=== PATIENT | female | born 1995 | race Caucasian/White ===

== ENCOUNTER → 2017-05-15 | Outpatient (CLI) | payer SELFPAY ==
[~2017-05-15] MED LIST: ALBU90OI INH; Amoxicillin875 MG PO; Bactrim Ds Tab1 EACH PO; CEPH500 PO; CHOL10002 PO; Cheratussin AC118 ML PO; Citrate Of Mag300 ML PO; DOXE10; HYDPAM25 PO; HYOS.125 SL; MEDR10 PO; MULVITMINE PO; Mobic7.5 MG PO; NORT25 PO; Norco 5-325 Ta1 EACH PO; ONDA4ODT MM; PARO20 PO; PRAZ2 PO; PROM25; PROM25 PO; RXONDA4ODT MM; SERT50 PO
== END ==
LOC: LAB SRC 11:55
DX: R31.9 Hematuria, unspecified (principal)
CPT/HCPCS: 87086

== ENCOUNTER 2017-06-15 12:38 | Emergency (ER) | payer OTHER ==
[~2017-06-15] VITALS: Ht 157.5 cm; Wt 52.2 kg
[~2017-06-15 12:38] MED LIST changes: -Bactrim Ds Tab1 EACH PO; -MEDR10 PO
[2017-06-15 13:12] LABS: BASOPHILS ABSOLUTE AUTO 0.05 K/mm3 (0.00-0.23); BASOPHILS PERCENT AUTO 1 % (0-2); EOSINOPHILS PERCENT AUTO 5 % (0-6); Hemoglobin 12.8 g/dL (11.5-16.0); IMMATURE GRAN ABSOLUTE AUTO 0.02 K/mm3 (0.00-0.10); IMMATURE GRAN PERCENT AUTO 0 % (0-1); LYMPHOCYTES ABSOLUTE AUTO 2.47 K/mm3 (0.84-5.20); LYMPHOCYTES PERCENT AUTO 31 % (21-46); MONOCYTES ABSOLUTE AUTO 0.48 K/mm3 (0.16-1.47); MONOCYTES PERCENT AUTO 6 % (4-13); Mean Corpuscular HGB 31.1 pg (26.0-34.0); Mean Corpuscular HGB Conc 32.8 g/dL (31.5-36.5); Mean Corpuscular Volume 95 fL (80-100); Mean Platelet Volume 8.9 fL (9.1-12.4); NEUTROPHILS ABSOLUTE AUTO 4.69 K/mm3 (1.96-9.15); NEUTROPHILS PERCENT AUTO 58 % (41-73); Platelet Count 433 K/mm3 (150-400); RDW Coefficient Variation 12.9 % (11.7-14.2); RDW Standard Deviation 44.4 fL (35.1-46.3); Red Blood Cell Count 4.12 M/mm3 (3.80-5.20); White Blood Cell Count 8.11 K/mm3 (4.00-11.30)
[2017-06-15 13:25] LABS: Alanine Aminotransfer (ALT/SGP 18 U/L (12-78); Albumin, Blood 4.3 g/dL (3.4-5.0); Alk Phos 69 U/L (50-136); Anion Gap 7 mmol/L (6-16); Aspartate Aminotrans (AST/SGOT 15 U/L (12-37); Bilirubin, Total 0.4 mg/dL (0.1-1.0); Blood Urea Nitrogen 15 mg/dL (8-24); Bun/Creatinine Ratio 21.4 (12.0-20.0); CO2, Blood 26 mmol/L (21-32); Calcium, Blood 9.2 mg/dL (8.5-10.1); Chloride, Blood 105 mmol/L (98-108); Globulin, Blood 4.3 g/dL (2.2-4.0); Glomerular Filtration Rate >60 (60-); Glucose, Blood 97 mg/dL (70-99); Potassium, Blood 3.7 mmol/L (3.5-5.5); Sodium, Blood 138 mmol/L (136-145); Total Protein, Blood 8.6 g/dL (6.4-8.2)
[2017-06-15] MEDS ORDERED: MEDR10 PO (14:52)
== END 2017-06-15 15:04 | disposition home or self-care (01) ==
LOC: ER 12:38
PROVIDERS: Emergency Medicine
DX: N93.9 Abnormal uterine and vaginal bleeding, unspecified (principal); F17.200 Nicotine dependence, unspecified, uncomplicated; Z88.8 Allergy status to other drugs, medicaments and biological substances; Z79.899 Other long term (current) drug therapy
CPT/HCPCS: 36415; 76856; 80053; 85025; 99284

== ENCOUNTER 2018-03-05 07:59 | Inpatient (IN) | payer OTHER ==
[~2018-03-05] VITALS: Ht 157.5 cm; Wt 50.0 kg
[~2018-03-05 07:59] MED LIST changes: +Bactrim Ds Tab1 EACH PO; +MEDR10 PO
[2018-03-05 08:54] LABS: BASOPHILS PERCENT AUTO 0 % (0-2); EOSINOPHILS PERCENT AUTO 0 % (0-6); Hematocrit 38.4 % (33.0-51.0); Hemoglobin 12.9 g/dL (11.5-16.0); Mean Corpuscular HGB 30.1 pg (26.0-34.0); Mean Corpuscular HGB Conc 33.6 g/dL (31.5-36.5); Mean Corpuscular Volume 90 fL (80-100); Mean Platelet Volume 8.8 fL (9.1-12.4); Platelet Count 204 K/mm3 (150-400); RDW Coefficient Variation 12.3 % (11.7-14.2); RDW Standard Deviation 40.3 fL (35.1-46.3); Red Blood Cell Count 4.28 M/mm3 (3.80-5.20); White Blood Cell Count 2.58 K/mm3 (4.00-11.30)
[2018-03-05 08:55] LABS: IMMATURE GRAN ABSOLUTE AUTO 0.02 K/mm3 (0.00-0.10); IMMATURE GRAN PERCENT AUTO 1 % (0-1); LYMPHOCYTES ABSOLUTE AUTO 0.25 K/mm3 (0.84-5.20); LYMPHOCYTES PERCENT AUTO 10 % (21-46); MONOCYTES ABSOLUTE AUTO 0.02 K/mm3 (0.16-1.47); MONOCYTES PERCENT AUTO 1 % (4-13); NEUTROPHILS ABSOLUTE AUTO 2.29 K/mm3 (1.96-9.15); NEUTROPHILS PERCENT AUTO 89 % (41-73)
[2018-03-05 09:19] LABS: International Normalized Ratio 1.28
[2018-03-05 09:26] LABS: Albumin, Blood 3.3 g/dL (3.4-5.0); Bilirubin, Total 1.6 mg/dL (0.1-1.0); Bun/Creatinine Ratio 17.4 (12.0-20.0); Calcium, Blood 8.2 mg/dL (8.5-10.1); Creatinine, Blood 1.21 mg/dL (0.40-1.00); Globulin, Blood 3.2 g/dL (2.2-4.0); Potassium, Blood 3.1 mmol/L (3.5-5.5); Total Protein, Blood 6.5 g/dL (6.4-8.2)
[2018-03-05 10:53] LABS: Source, Urine Clean Catch
[2018-03-05 10:56] LABS: Appearance, Urine Clear (Clear); Bilirubin, Urine Neg (Neg); Blood, Urine 1+ (Neg); Color, Urine Yellow (P-Yellow); Glucose Qualitative, Urine Neg (Neg); Ketones, Urine Neg (Neg); Leukocyte Esterase, Urine 1+ (Neg); Nitrite, Urine Neg (Neg); Protein, Urine 1+ (Neg); Urobilinogen, Urine NORM (Normal)
--- NOTE | 2018-03-05 11:17 | NUR ---
REPORT TAKEN FROM RISK COMPLIANCE ANALYST
[2018-03-05 11:18] LABS: White Blood Cells, Urine 0-2 /hpf (0-5)
[2018-03-05 11:19] LABS: Bacteria Many /hpf; Red Blood Cells, Urine Not Seen /hpf (0-2); Squamous Epithelial Cells Mod /hpf (Few)
--- NOTE | 2018-03-05 11:31 | NUR ---
PT ADMITTED TO ICU FROM ER FOR SEVERE SEPSIS. PT AWAKE, ORIENTED, DROWSY. SKIN PALE TO DUSKY AND CLAMMY. POOR PERIPHERAL PERFUSION TO 4 EXT. BT'S HYPOACTIVE. C/O PAIN 10/10 EVERYWHERE, ESPECIALLY TO CHEST AREA/DIFFUSE. DISCRIBES PAIN ACHY AND SHARP. PT HYPOTENSIVE AT 87/55 W MAP 63. HEART RATE SINUS TACH AT 126. PT DOES NOT HAVE LEMA CATH, URINATED 700CC IN ER. PT HAS LR RUNNING AT 150CC/HR. PT MAY REQUIRE ADDITIONAL FLUIDS AND/OR PRESSORS. MAY NEED PICC LINE. TEMP 98.7.
[2018-03-05 11:35] LABS: U Amphetamine Screen DETECTED; U Methamphetamine Screen DETECTED; U Opiates Screen DETECTED; U Oxycodone Screen DETECTED
[2018-03-05 11:36] LABS: U Barbituate Screen Not Detected; U Benzodiazapine Screen Not Detected; U Buprenorphine Screen Not Detected; U Cannabinoids Screen Not Detected; U Cocaine Screen Not Detected; U Methadone Screen Not Detected; U Phencyclidine Screen Not Detected; U Propoxyphene Screen Not Detected
--- NOTE | 2018-03-05 12:01 | NUR ---
DR MATT CALLED REGARDING PT'S HYPOTENSION, HEART RATE 126, 02 NEEDS; PLACED ON 2L VIA N/C FOR SATS 88% ON RA, POOR PERFUSION. DR SOLIS CONSULTED/IN UNIT. DR SOLIS GIVEN QUICK UPDATE. PICC LINE TO BE PLACED
--- NOTE | 2018-03-05 12:08 | NUR ---
DR SOLIS AT BEDSIDE. PICC LINE TO BE PLACED.
--- NOTE | 2018-03-05 13:23 | NUR ---
Late note: Spoke with pt's boyfriend's mother in the hallway. She was provided space to reflect on the pt - her thoughts and feelings for her and her hope of changing her life choices. She verbalizes the potential of the boyfriend visiting later in the day. Pastoral presence and empathic listening extended to the pt's mother in law.
--- NOTE | 2018-03-05 15:12 | NUR ---
PICC LINE PLACED W/O DIFFICULTY. 1 LITER NS BOLUS AT 1230. BP CONT TO FALL AFTER BOLUS. LEVOPHED GTT STARTED AT 4MCG FOR MAP < 60. 14F TEMP LEMA PROB PLACED W/O DIFFICULTY. TEMP 100.9, TYLENOL GIVEN W SMALL SIP OF WATER. FENT IV GIVEN FOR PAIN "EVERYWHERE" 11/17, WITH GOOD EFFECT. PT REMAINS TACHY. SATS 100% ON 2L VIA N/C. PT'S FATHER CALLED AND GIVEN UPDATE THAT SHE IS IN HOSP W INFECTION PER PT'S REQUEST. SHE DOES NOT WANT FATHER OR OTHERS TO KNOW THAT IT WAS FROM IV DRUG USE. I EXPLAINED TO PT IF SHE GETS WORSE AND IS UNABLE TO SPEAK FOR HERSELF, THAT INFORMATION MAY NEED TO BE SHARED WITH NEXT OF KIN. PT AGREED THAT WOULD BE ACCEPTABLE.
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
--- NOTE | 2018-03-05 20:53 | NUR ---
CARE ASSUMED REPORT RECEIVED, CARE ASSUMED. PT DROWSY, BUT ORIENTED AND COOPERATED. MEDICATED FOR PAIN, SEE EMAR. VITALS STABLE WITH LEVOPHED. SEE FLOWSHEET. SEE SHIFT ASSESSMENT. PT REPEATEDLY REQUESTING FOOD, RECEPTIVE TO EDUCATION. PROVIDED WITH ICE CHIPS.
--- NOTE | 2018-03-06 02:27 | NUR ---
PAIN BILATERAL HANDS PT REPORTS 10/10 PAIN IN BILATERAL FINGERTIPS STATING SHE CANT FEEL THEM. CAP REFILL CONTINUES TO BE DELAYED. 02 PROB READING SATURATION ON BILATERAL HANDS. TITRATING LEVOPHED INDICATED. PT EDUCATED AND AGREEABLE. SEE FLOWSHEET.
[2018-03-06 03:46] LABS: Hematocrit 33.1 % (33.0-51.0); Hemoglobin 11.1 g/dL (11.5-16.0); Mean Corpuscular HGB 30.5 pg (26.0-34.0); Mean Corpuscular HGB Conc 33.5 g/dL (31.5-36.5); Mean Corpuscular Volume 91 fL (80-100); Platelet Count 138 K/mm3 (150-400); RDW Standard Deviation 43.4 fL (35.1-46.3); Red Blood Cell Count 3.64 M/mm3 (3.80-5.20); White Blood Cell Count 16.98 K/mm3 (4.00-11.30)
[2018-03-06 04:00] LABS: Anion Gap 9 mmol/L (6-16); Blood Urea Nitrogen 24 mg/dL (8-24); Bun/Creatinine Ratio 23.3 (12.0-20.0); CO2, Blood 24 mmol/L (21-32); Calcium, Blood 6.8 mg/dL (8.5-10.1); Chloride, Blood 111 mmol/L (98-108); Creatinine, Blood 1.03 mg/dL (0.40-1.00); Glomerular Filtration Rate >60 (60-); Glucose, Blood 81 mg/dL (70-99); Magnesium, Blood 1.5 mg/dL (1.6-2.4); Phosphorus, Blood 5.1 mg/dL (2.5-4.9); Potassium, Blood 3.8 mmol/L (3.5-5.5); Sodium, Blood 144 mmol/L (136-145)
[2018-03-06 04:05] LABS: BAND PERCENT MAN 21 % (0-8); BASOPHILS PERCENT MAN 0 % (0-2); EOSINOPHILS PERCENT MAN 0 % (0-6); LYMPHOCYTES ABSOLUTE MAN 0.33 K/mm3 (0.84-5.20); LYMPHOCYTES PERCENT MAN 2 % (21-46); METAMYELOCYTE PERCENT MAN 3 % (0-0); MONOCYTES ABSOLUTE MAN 0.33 K/mm3 (0.16-1.47); MONOCYTES PERCENT MAN 2 % (4-13); MYELOCYTE PERCENT MAN 3 % (0-0); NEUTROPHILS ABSOLUTE MAN 15.28 K/mm3 (1.96-9.15); SEG NEUTROPHILS PERCENT MAN 69 % (41-73); TOTAL CELLS COUNTED 100
--- NOTE | 2018-03-06 05:35 | NUR ---
DR. SOLIS COMMUNICATION PT CONTINUES TO HAVE PAIN IN FINGERS. LEVOPHED OFF. DR. SOLIS MADE AWARE.
--- NOTE | 2018-03-06 06:34 | NUR ---
SUMMARY THROUGHOUT NIGHT AND MORNING PT HAS BEEN TITRATED OFF OF LEVOPHED, SEE FLOWSHEET. GOOD URINE OUTPUT NOTED THROUGHOUT NIGHT. PT REPORTS FEELING PAINFUL ALL OVER, AND "DOPE SICK" THIS MORNING. PROVIDED WITH MEDICATIONS PER EMAR. PT HAS RESTED ON AND OFF, THOUGH IS ANXIOUS AND PAINFUL. HR REMAINS TACHYCARDIC IN 100'S-110'S. TEMP CONSISTENTLY 99'S. RR 12-2O THROUGHOUT NIGHT. PT DOES REPORT PAIN IN HANDS IS IMPROVING SINCE LEVOPHED HAS BEEN TURNED OFF. OTHERWISE, NO CHANGES.
--- NOTE | 2018-03-06 07:35 | NUR ---
ASSUMED CARE OF PT THIS AM. PT REQUESTING ASSISTANCE WITH REPOSITIONING, STATES "I HURT EVERYWHERE I CANT MOVE". PT. ASSISTED TO REPOSITION. PT. SHOWS WHERE SHE INJECTED, PUNCTURE SITES PRESENT, NO REDNESS OR SWELLING. LEVOPHED CURRENTLY OFF AT THIS TIME. PT. REQUESTING MEDICATION TO SLEEP. PROVIDER NOTIFIED, MELATONIN TO BE ORDERED THIS EVENING. PT. ANXIOUS IN ROOM, CONTINUES TO STATES "I HURT AND I NEED TO SLEEP", ATIVAN ORDER OBTAINED FROM PROVIDER PRN. CALL LIGHT IN REACH. WATER AT BEDSIDE.
--- NOTE | 2018-03-06 12:04 | NUR ---
UPDATE PT SLEEPING AT THIS TIME. APPEARS TO BE RESTING MORE COMFORTABLY POST ATIVAN ADMIN. VSS AT THIS TIME.
--- NOTE | 2018-03-06 14:24 | NUR ---
DIARRHEA PT HAVING FREQUENT LIQUID STOOL, INCONTINENT IN BED. UNABLE TO OBTAIN SAMPLE AT THIS TIME. NOTIFIED. PT WEAK AND PAINFUL WHEN GETTING UP TO BEDSIDE COMMODE AND DIZZY UPON STANDING. BED CROOK AND DRY FLOWS USED
--- NOTE | 2018-03-06 14:25 | NUR ---
LEVOPHED PT CONTINUES WITH BP MAP IN THE 50S. LEVOPHED GTT RESTARTED AT 2MCG/KG/MIN
--- NOTE | 2018-03-06 15:29 | NUR ---
RECTAL TUBE PLACED PT. CONTINUED TO AWAKEN AND HAVE SOILED SELF IN BED WITH LIQUID STOOL. PER DR. SOLIS RECTAL TUBE PLACED AT THIS TIME. SPECIMEN COLLECTED AND SENT TO LAB. PT LEVOPHED GTT TITRATED UP TO 4MCG/KG/MIN.
--- NOTE | 2018-03-06 17:18 | NUR ---
SHIFT SUMMARY PT. REMAINS ALERT AND ORIENTED T/O SHIFT. WEAK AND PAINFUL WITH MOVEMENT. MEDICATED WITH ATIVAN AND FENTANYL PRN THIS SHIFT FOR ANXIETY AND PAIN MANAGEMENT. PT. STARTED TO HAVE LIQUID STOOL THIS SHIFT, RECTAL TUBE PLACED PER DR. SOLIS AND STOOL SPECIMEN SENT TO LAB. PT. BECAME HYPOTENSIVE AND LEVOPHED WAS RESTARTED AND TITRATED UP TO 6MCG/KG/MIN. PT. REMAINED ON RA T/O SHIFT. PT REQUESTING ASSISTANCE FOR REPOSITIONING FREQUENTLY T/O DAY. TMAX OF 99.7 THIS SHIFT. VSS AT THIS TIME. REPORT TO ONCOMING RN.
--- NOTE | 2018-03-06 22:24 | NUR ---
1899 CARE ASSUMED, PT DROWSY, ROUSES TO VERBAL STIM. BP STABLE, LEVOPHED GTT DECREASED 1MIC/ MIN TO 3 YESENIA/MIN. FINGERS COLD, C/O PAIN ALL OVER , MOSTLY IN BACK, TREATED W/ FENTANYL 50 YESENIA. PT C/O EXCRUCIATING PAIN W/ MOVEMENT BUT QUICKLY RETURNS TO SLEEP. 2039 POSITIVE BLOOD CULT REPORTED TO DR SOLIS, CLINDAMYCIN STARTED. 2144 NEW ONSET FREQ PVC, PRS, VT TO [address] SOLIS, LAB & ELECTROLYTE ODERS STARTED.
--- NOTE | 2018-03-06 22:30 | NUR ---
ASSUMED PT CARE TOOK OVER CARE. PT LYING IN BED ON HER SIDE. DECLINED THE NEED TO BE TURNED. PT NEEDED BLOOD DRAWN AND D/T BP'S BEING TOO UNSTABLE; LAB WAS ASKED TO DRAW INSTEAD OF TAKING BLOOD FROM PT'S PICC LINE. PT IS ALERT AND ORIENTED; ABLE TO MAKE NEEDS KNOWN; VERY DROWSY, BUT EASILY AROUSED. PT HAS LEVOPHED INFUSING AT 4MCG/MIN; LR AT 150MLS/HR; AND NS TKO. PT APPEARS TO BE COMFORTABLE AT THIS TIME.
[2018-03-06 22:49] LABS: Magnesium, Blood 1.8 mg/dL (1.6-2.4); Phosphorus, Blood 3.8 mg/dL (2.5-4.9); Potassium, Blood 3.3 mmol/L (3.5-5.5)
[2018-03-07 06:01] LABS: BASOPHILS ABSOLUTE AUTO 0.09 K/mm3 (0.00-0.23); BASOPHILS PERCENT AUTO 0 % (0-2); Hematocrit 31.6 % (33.0-51.0); Hemoglobin 10.7 g/dL (11.5-16.0); LYMPHOCYTES ABSOLUTE AUTO 1.44 K/mm3 (0.84-5.20); LYMPHOCYTES PERCENT AUTO 5 % (21-46); MONOCYTES ABSOLUTE AUTO 1.24 K/mm3 (0.16-1.47); MONOCYTES PERCENT AUTO 5 % (4-13); Mean Corpuscular HGB 31.1 pg (26.0-34.0); Mean Corpuscular HGB Conc 33.9 g/dL (31.5-36.5); Mean Corpuscular Volume 92 fL (80-100); Mean Platelet Volume 10.2 fL (9.1-12.4); Platelet Count 120 K/mm3 (150-400); RDW Coefficient Variation 13.2 % (11.7-14.2); RDW Standard Deviation 44.6 fL (35.1-46.3); Red Blood Cell Count 3.44 M/mm3 (3.80-5.20); White Blood Cell Count 26.81 K/mm3 (4.00-11.30)
[2018-03-07 06:02] LABS: EOSINOPHILS ABSOLUTE AUTO 0.01 K/mm3 (0.00-0.68); EOSINOPHILS PERCENT AUTO 0 % (0-6); IMMATURE GRAN ABSOLUTE AUTO 2.98 K/mm3 (0.00-0.10); IMMATURE GRAN PERCENT AUTO 11 % (0-1); NEUTROPHILS ABSOLUTE AUTO 21.05 K/mm3 (1.96-9.15); NEUTROPHILS PERCENT AUTO 79 % (41-73)
--- NOTE | 2018-03-07 06:13 | NUR ---
END OF SHIFT SUMMARY PT REMAINS ALERT AND ORIENTED; ABLE TO COMMUNICATE NEEDS. PT HAD AN EPISODE OF NON-SUSTAINED V-TACH AROUND 2129; THEREFORE, DR. SOLIS ORDERED LABS WITH ELECTROLYTE PROTOCOL. PT ENDED UP RECEIVING POTASSIUM CHLORIDE 40MEQ AND MAGNESIUM SULFATE 2G PER THE ELECTROLYTE PROTOCOL. PICC LINE REMAINS PATENT AND INFUSING LR AT 100MLS/HR; NS TKO; AND LEVOPHED AT 3MCG/MIN. PT HAS C/O PAIN DURING REPOSITIONING; MEDICATED WITH PRN FENTANYL X2 T/O SHIFT; EFFECTIVE. RECTAL TUBE BEGAN TO LEAK, BUT WAS STILL INTACT; THEREFORE, DEFLATED BALLOON AND INSERTED FURTHER; REINFLATED WITH 45CC OF WATER. RECTAL TUBE CONTINUED TO LEAK; THEREFORE, INFLATED WITH AN ADDITIONAL 15CC OF WATER. RECTAL TUBE HAS SINCE REMAINED PATENT AND DRAINING TO GRAVITY. PT HAS BEEN EDUCATED TO TRY AND REMAIN ON SIDE IN ORDER TO PREVENT CLAMPING DOWN THE RECTAL TUBE; PT DEMONSTRATED UNDERSTANDING. LEMA CATH IS PATENT AND DRAINING TO GRAVITY; CLEAR, YELLOW URINE; NO SEDIMENT OR HEMATURIA NOTED. LUNG SOUNDS REMAIN CLEAR. CARDIOVASCULAR MAC PT HAS BEEN SINUS TACH 100-110'S WITH THE ONE EPISODE OF NON-SUSTAINED V-TACH; AND OCCASIONAL PVC'S NOTED; NO MURMURS NOTED. PT SKIN REMAINS FLUSHED WITH HER BILATERAL FINGERS PALE/DUSKY AND COLD TO THE TOUCH.
[2018-03-07 06:18] LABS: BAND PERCENT MAN 31 % (0-8); BASOPHILS PERCENT MAN 0 % (0-2); EOSINOPHILS PERCENT MAN 0 % (0-6); LYMPHOCYTES ABSOLUTE MAN 1.34 K/mm3 (0.84-5.20); LYMPHOCYTES PERCENT MAN 5 % (21-46); METAMYELOCYTE ABSOLUTE MAN 0.26 K/mm3 (0.00-0.00); METAMYELOCYTE PERCENT MAN 1 % (0-0); MONOCYTES PERCENT MAN 3 % (4-13); NEUTROPHILS ABSOLUTE MAN 24.39 K/mm3 (1.96-9.15); SEG NEUTROPHILS PERCENT MAN 60 % (41-73); TOTAL CELLS COUNTED 100
[2018-03-07 06:19] LABS: Anion Gap 6 mmol/L (6-16); Blood Urea Nitrogen 20 mg/dL (8-24); Bun/Creatinine Ratio 21.7 (12.0-20.0); CO2, Blood 23 mmol/L (21-32); Calcium, Blood 6.9 mg/dL (8.5-10.1); Chloride, Blood 114 mmol/L (98-108); Creatinine, Blood 0.92 mg/dL (0.40-1.00); Glomerular Filtration Rate >60 (60-); Glucose, Blood 79 mg/dL (70-99); Magnesium, Blood 2.7 mg/dL (1.6-2.4); Potassium, Blood 4.1 mmol/L (3.5-5.5); Sodium, Blood 143 mmol/L (136-145)
--- NOTE | 2018-03-07 08:01 | NUR ---
ASSUMED CARE PT. ALERT AND ORIENTED THIS AM. DROWSY. AWAKENS TO VERBAL STIMULI. PT HR LOW 100S, REMAINS ON LEVOPHED GTT AT 3MCG/KG/MIN. PT CONTINUES TO REPORT PAIN T/O BODY. STATES "MY INSIDES AND MY SHOULDERS AND MY BACK", WILL MED PER ORDER. PT. CONTINUES WITH RECTAL TUBE IN PLACE, DRAINING LIQUID BROWN STOOL. LEMA PATENT AND DRAINING TO GRAVITY. NADN AT THIS TIME.
[2018-03-07 10:02] LABS: Vancomycin, Trough 3.5 ug/mL (5.0-10.0)
--- NOTE | 2018-03-07 12:15 | NUR ---
UPDATE PT REMAINS PAINFUL WITH REPOSITIONING, TOLERATING BETTER THAN YESTERDAY. PT. ABLE SHIFT SELF IN BED WITH MINIMAL ASSISTANCE. RECTAL TUBE REMAINS IN PLACE, DRAINING TO GRAVITY ALONG WITH LEMA. PT. HAS GOOD ORAL INTAKE OF FLUIDS, CURRENTLY ON CLEAR LIQUIDS. LEVOPHED TITRATED DOWN TO 2MCG/KG/MIN AT THIS TIME. PT. SLEEPING ON AND OFF T/O DAY. COOPERATIVE WITH CARE
--- NOTE | 2018-03-07 17:55 | NUR ---
SHIFT SUMMARY PT. ALERT AND ORIENTED T/O SHIFT. PT. ABLE TO REPOSITION HERSELF WITH OUT ASSISTANCE TODAY. PT ALSO REPORTS HER PAIN HAS IMPROVED FROM YESTERDAY. PT. SLEPT MOST OF THE DAY, REPORTING LITTLE DESIRE FOR FOOD, BUT TOLERATING PO LIQUIDS. PT. CONTINUES WITH LIQUID STOOL; FIBER SUPPLEMENT AND PROBIOTICS STARTED THIS SHIFT. PT. ALSO CONTINUES WITH LEMA CATHETER DRAINING TO GRAVITY.PT. LEVOPHED DECREASED TO 2MCG/KG/MIN THIS AFTERNOON. ESPERANZAN. CALL LIGHT IN REACH, REPORT TO ONCOMING RN.
--- NOTE | 2018-03-07 19:15 | NUR ---
ASSUMED PT CARE PT IS CURRENTLY ASLEEP. FAMILY STOPPED BY TO DROP OF A CELL PHONE MEASUREMENT SUPERVISOR FOR PT; STATED THEY COULDN'T STAY BECAUSE THEY WERE SICK, BUT ALSO DIDN'T WANT TO WAKE THE PT. LEVOPHED IS CURRENTLY INFUSING AT 1MCG/MIN VIA PICC LINE TO TERRENCE. NS TKO WITH ZOSYN INFUSING, WELL LR INFUSING AT 100MLS/HR. PT IS IN NSR WITH HR 90'S. LEMA CATH IS PATENT AND DRAINING CLEAR, YELLOW URINE. RECTAL TUBE IS PATENT AND DRAINING TO GRAVITY WELL. PT APPEARS COMFORTABLE WITH NO SIGNS OF ACUTE DISTRESS AT THIS TIME. CALL LIGHT IS WITHIN REACH, WELL BEDSIDE TABLE.
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
[2018-03-08 03:22] LABS: BASOPHILS ABSOLUTE AUTO 0.03 K/mm3 (0.00-0.23); BASOPHILS PERCENT AUTO 0 % (0-2); EOSINOPHILS ABSOLUTE AUTO 0.02 K/mm3 (0.00-0.68); EOSINOPHILS PERCENT AUTO 0 % (0-6); Hematocrit 29.5 % (33.0-51.0); Hemoglobin 9.7 g/dL (11.5-16.0); IMMATURE GRAN ABSOLUTE AUTO 0.05 K/mm3 (0.00-0.10); IMMATURE GRAN PERCENT AUTO 0 % (0-1); LYMPHOCYTES ABSOLUTE AUTO 1.63 K/mm3 (0.84-5.20); LYMPHOCYTES PERCENT AUTO 9 % (21-46); MONOCYTES ABSOLUTE AUTO 0.64 K/mm3 (0.16-1.47); MONOCYTES PERCENT AUTO 4 % (4-13); Mean Corpuscular HGB 30.7 pg (26.0-34.0); Mean Corpuscular HGB Conc 32.9 g/dL (31.5-36.5); Mean Corpuscular Volume 93 fL (80-100); Mean Platelet Volume 10.2 fL (9.1-12.4); NEUTROPHILS ABSOLUTE AUTO 15.39 K/mm3 (1.96-9.15); NEUTROPHILS PERCENT AUTO 87 % (41-73); Platelet Count 107 K/mm3 (150-400); RDW Coefficient Variation 13.1 % (11.7-14.2); Red Blood Cell Count 3.16 M/mm3 (3.80-5.20); White Blood Cell Count 17.76 K/mm3 (4.00-11.30)
[2018-03-08 03:39] LABS: Anion Gap 5 mmol/L (6-16); Blood Urea Nitrogen 11 mg/dL (8-24); Bun/Creatinine Ratio 12.4 (12.0-20.0); CO2, Blood 24 mmol/L (21-32); Calcium, Blood 7.5 mg/dL (8.5-10.1); Chloride, Blood 115 mmol/L (98-108); Creatinine, Blood 0.88 mg/dL (0.40-1.00); Glomerular Filtration Rate >60 (60-); Glucose, Blood 93 mg/dL (70-99); Magnesium, Blood 1.8 mg/dL (1.6-2.4); Phosphorus, Blood 2.1 mg/dL (2.5-4.9); Sodium, Blood 144 mmol/L (136-145)
--- NOTE | 2018-03-08 05:55 | NUR ---
END OF SHIFT SUMMARY PT HAS BEEN PLEASANT AND COOPERATIVE WITH CARE; VERY RESTLESS TONIGHT STATING THAT THE RECTAL TUBE WAS UNCOMFORTABLE; REPOSITIONING OF THE RECTAL TUBE AND PT WERE BOTH UNEFFECTIVE. STOOL IS BECOMING MORE PASTY RATHER THAN LOOSE; THEREFORE, ASKED PT IF SHE JUST WANTED IT REMOVED AND SHE STATED NO. CONTINUED WITH ASSISTANCE IN REPOSITIONING. LEVOPHED TURNED OFF AT MIDNIGHT AND BP'S HAVE MAINTAINED SBP 90'S WITH MAP >60. PT HAS C/O GENERALIZED PAIN, BUT C/O OF CHEST PAIN ONCE; PT STATED IT WAS MORE PAINFUL ON INSPIRATION. LISTENED TO HEART; NO RUBS OR MURMURS NOTED. VSS. LATER IN THE SHIFT WHEN PT REQUESTED PRN ATIVAN PT EXPERIENCED AN EPISODE OF BRADYCARDIA FOR <10 SECONDS DURING ADMINISTRATION WITH MILD CHEST PAIN. ATIVAN WAS ADMINISTERED PER GUIDELINES ACCORDING TO CLINICAL PHARMACOLOGY AT NO MORE THAN 2MG/MIN. BOYFRIEND WAS IN TO SEE PT AT APPROXIMATELY 0200; BROUGHT IN A BAG OF CHARGERS, A SCARF, SOCKS, AND A KEN'S BAR. BOYFRIEND CONTINUED TO HELP "REPOSITION PT" AND REMOVED HER BP CUFF. INFORMED BOTH THE BOYFRIEND AND THE PT THAT THE CUFF NEEDED TO STAY ON AND THAT THEY NEEDED TO CALL FOR ASSISTANCE PRIOR TO REPOSITIONING IN ORDER TO PREVENT ANY LINES FROM DISLODGING. THE BOYFRIEND LEFT AT APPROXIMATELY 0400. PT HAS BEEN RESTING SINCE. JUST REPOSITIONED AGAIN AND MEDICATED WITH PRN ATIVAN PER ORDERS. MAGNESIUM WAS ORDERED PER ELECTROLYTE PROTOCOL AND SPOKE WITH DR. SHEARER REGARDING LOW PHOSPHORUS LEVEL PHARMACY CALLED TO STATE THERE WASN'T ANY SODIUM PHOS AVAILABLE; NEW ORDERS FOR NEUTRA PHOS PO INSTEAD. PT CURRENTLY HAS LR INFUSING AT 100MLS/HR; NS TKO; MAGNESIUM 25MLS/HR. PT APPEARS COMFORTABLE AT THIS TIME. NO SIGNS OF DISTRESS NOTED.
--- NOTE | 2018-03-08 08:00 | NUR ---
PATIENTS RECTAL TUBE JUST DCED AND ALTHEA CARE DONE. PLAN TO REMOVE LEMA CATH TODAY. LUNGS CLEAR T/O. IVPBS INFUSING. MED WITH LOMOTIL BECAUSE OF SEVERE DIARHEA.
--- NOTE | 2018-03-08 09:55 | NUR ---
WANTS MORE PAIN MED FOR HER LEG PAIN. MED WITH 25MICS OF FENTANYL WITH SOME RELIEF.
[2018-03-08 11:04] LABS: Vancomycin, Trough 20.7 ug/mL (5.0-10.0)
--- NOTE | 2018-03-08 14:44 | NUR ---
1430: IV IN STANDBY SO PT CAN GO FOR A WALK WITH SO. PT ALERT AND ORIENTED, APPROPRIATE, GAIT STEADY.
--- NOTE | 2018-03-08 15:28 | NUR ---
DISCONNECTED FROM IV AND ACCOMPANIED BY BOYFRIEND WENT OUTSIDE TO SMOKE.
--- NOTE | 2018-03-08 15:31 | NUR ---
HAVING TROUBLE SELVIN BIPAP MASK. DR SOLIS CALLED AND PT GIVEN 0.5MG OF ATIVAN. SBP DOWN IN THE 70S.250 OF LACT RINGERS GIVEN AND SBP UP TO 90S. TRYING A NASAL MASK, VERY SMALL BUT PATIENT CAN SELVIN IT. 100% 10/5 WITH BUR 12.
--- NOTE | 2018-03-08 18:06 | NUR ---
FEMALE PATIENT IS A MED FLOOR PATIENT. WENT OUTSIDE WITH BOYFRIEND TO SMOKE. IVS WERE DISCONNECTED BEFORE SHE LEFT AND THEN RESTARTED WHEN BACK. FEELING MUCH BETTER. HAS NOT ASKED FOR PAIN MEDS FOR HER LEGS IN A LONG WHILE.
--- NOTE | 2018-03-08 18:23 | NUR ---
REPORT CALLED TO Lila CHANDLER RN AND PATIENT WILL BE TAKEN TO 336 BY WHEELCHAIR.
--- NOTE | 2018-03-08 19:09 | NUR ---
RECEIVED HANDOFF FROM ICU NURSE JIMENA ICU NURSE INFORMED ME OF PT'S HX, CODE STATUS, IV PLACEMENTS, MEDICATIONS, DIAGNOSES, AND CARE REQUIRED. PT WAS TRANSFERED FROM ICU 7 TO ROOM 336 WITHOUT INCIDENT AND ORIENTED TO THE ROOM AND UNIT.
[2018-03-09 05:21] LABS: BASOPHILS ABSOLUTE AUTO 0.04 K/mm3 (0.00-0.23); BASOPHILS PERCENT AUTO 0 % (0-2); EOSINOPHILS ABSOLUTE AUTO 0.16 K/mm3 (0.00-0.68); EOSINOPHILS PERCENT AUTO 2 % (0-6); Hematocrit 31.3 % (33.0-51.0); Hemoglobin 10.4 g/dL (11.5-16.0); IMMATURE GRAN ABSOLUTE AUTO 0.26 K/mm3 (0.00-0.10); IMMATURE GRAN PERCENT AUTO 3 % (0-1); LYMPHOCYTES ABSOLUTE AUTO 2.13 K/mm3 (0.84-5.20); LYMPHOCYTES PERCENT AUTO 22 % (21-46); MONOCYTES ABSOLUTE AUTO 0.57 K/mm3 (0.16-1.47); MONOCYTES PERCENT AUTO 6 % (4-13); Mean Corpuscular HGB Conc 33.2 g/dL (31.5-36.5); Mean Platelet Volume 10.5 fL (9.1-12.4); NEUTROPHILS ABSOLUTE AUTO 6.58 K/mm3 (1.96-9.15); NEUTROPHILS PERCENT AUTO 68 % (41-73); Platelet Count 115 K/mm3 (150-400); RDW Coefficient Variation 12.8 % (11.7-14.2); Red Blood Cell Count 3.47 M/mm3 (3.80-5.20); White Blood Cell Count 9.74 K/mm3 (4.00-11.30)
[2018-03-09 05:23] LABS: Mean Corpuscular Volume 90 fL (80-100)
--- NOTE | 2018-03-09 05:42 | NUR ---
SHIFT SUMMARY PT A&OX4. AMBULATES INDEPENDENTLY. PT WENT OUT WITH BOYFRIEND TO SMOKE ONCE AT THIS SHIFT. COMPLAINTS OF HEAD AND BACK PAIN. MEDICATED PAIN WITH FENTANYL PER EMAR. TYLENOL GIVEN FOR ELEVATED TEMP. TEMP IMPROVED. IVF LR RUNNING. SLEPT ON AND OFF. WILL CONTINUE TO MONITOR.
[2018-03-09 05:48] LABS: Alanine Aminotransfer (ALT/SGP 51 U/L (12-78); Albumin, Blood 2.7 g/dL (3.4-5.0); Albumin/Globulin Ratio 0.8 (0.8-1.8); Alk Phos 100 U/L (50-136); Anion Gap 7 mmol/L (6-16); Aspartate Aminotrans (AST/SGOT 23 U/L (12-37); Bilirubin, Total 0.5 mg/dL (0.1-1.0); Blood Urea Nitrogen 9 mg/dL (8-24); Bun/Creatinine Ratio 10.4 (12.0-20.0); CO2, Blood 27 mmol/L (21-32); Calcium, Blood 8.4 mg/dL (8.5-10.1); Chloride, Blood 109 mmol/L (98-108); Creatinine, Blood 0.87 mg/dL (0.40-1.00); Globulin, Blood 3.2 g/dL (2.2-4.0); Glomerular Filtration Rate >60 (60-); Glucose, Blood 90 mg/dL (70-99); Magnesium, Blood 1.6 mg/dL (1.6-2.4); Phosphorus, Blood 4.9 mg/dL (2.5-4.9); Sodium, Blood 143 mmol/L (136-145); Total Protein, Blood 5.9 g/dL (6.4-8.2)
--- NOTE | 2018-03-09 18:42 | NUR ---
SHIFT SUMMARY PT AXO X4 THOUGH ANXIOUS AT TIMES. PT MEDICATED FOR PAIN PER EMAR THOUGH PT COMPLAINS OF PAIN 10/10 WHILE BEING ABLE TO SLEEP. PT THREATENED TO LEAVE AMA AT ABOUT 1525. CHARGE NURSE EDUCATED PT ABOUT RISKS ASSOCIATED WITH THIS AND PATIENT AGREED TO STAY FOR NOW. PT SLEEPING AT THIS TIME. BED IN LOW POSITION, CALL LIGHT WITHIN REACH. PT REQUESTING TO GO OUTSIDE TO SMOKE, PT EDUCATED ABOUT NOT USING ILLICIT DRUGS WHILE OUTSIDE. PT DENIED USING SUBSTANCES OTHER THAN TOBACCO WHILE OUTSIDE THOUGH ADMITS TO GOING TO [employer] [facility] AND USING MARIJUANA YESTERDAY. PT STATED THAT SHE WOULD STAY ON CAMPUS AND WOULD ONLY SMOKE TOBACCO. HOWEVER PT STATED THAT SHE "WILL NOT MAKE UNREALISTIC PROMISES AND SAY THAT SHE IS GOING TO QUIT DRUGS" SHE STATED THAT SHE WILL NOT "SHOOT UP DRUGS FOR NOW" BUT THAT'S ALL THAT SHE WAS GOING TO PROMISE.
--- NOTE | 2018-03-10 07:24 | NUR ---
SHIFT SUMMARY: PT C/O OF CURRENT PAIN REGIMEN OF 5MG OXYCODONE Q6H NOT COVERING HER PAIN, AND WANTS TO RECONTINUE FENTANYL. C/O OF GENERALIED PAIN, 10 OUT OF 10. UNRELIEVED BY OXYCODONE, HOWEVER PT IS SLEEPING THE ENTIRE SHIFT. A&O X 4, INDEPENDENT IN ROOM.TOLERATING ROOM AIR. OUT TO SMOKE SEVERAL TIMES T/O DAY c BOYFRIEND, TAMPER TAPE PLACED ON IV ACCESS POINTS. BLOOD CULTURES RETRIEVED THIS AM. NO OTHER ACUTE CHANGES TO REPORT.
--- NOTE | 2018-03-10 13:13 | NUR ---
Echocardiogram completed.
--- NOTE | 2018-03-10 17:03 | NUR ---
SUSPICIOUS BEHAVIOR AT ABOUT 12:30 TODAY IT WAS REPORTED TO ME THAT ONE OF THE STAFF HAD FOUND HEROIN IN THE PTS ROOM, THEN THE DRUG WAS LOST, THIS RN DID NOT PERSONALLY WITNESS ANY OF THESE ASSUMPTIONS, THE PT WAS REMINDED HOWEVER TO NOT INJECT HERION OR ANY OTHER DRUGS INTO HER PICC LINE OR IV, AND TO REPORT TO THE NURSE WHENEVER SHE LEFT THE ROOM SO THAT THE TAMPER TAPE COULD BE APPLIED TO ALL PORTS, THE PT REPORTED THAT SHE WAS NOT EVER INTENDING TO USE HEROIN OR METH AGAIN, THIS ENCOUNTER WAS REPORTD TO THE DOCTOR AND THE FLOOR RETAIL ANALYTICS MANAGER, THE PT AT THIS TIME SEEMS COOPERATIVE AND COMPLIANT
--- NOTE | 2018-03-10 18:15 | NUR ---
PT IS A/OX3, COOPERATIVE, IRRITABLE AT TIMES, THE PT IS UP IND IN HER ROOM, TODAY SOME OF THE STAFF HAD SUSPECTED THAT THE PT MAY BE USING ILLICIT DRUGS WHILE OUTSIDE BECAUSE OF HER LETHARGY AND DROWSINESS THIS AM, THE PT DENIED ANY OF THOSE ALLIGATIONS AND IT WAS NOT WITNESSED, AN EXPLANATION MAY BE THAT THE PT WAS MEDICATED FOR ANXIETY EARLY AROUND 0400 TODAY WITH 2 MG OF IV ATIVAN, THE PT APPEARS TO BE BREATHING EASILY ON RA, THE PT WAS MEDICATED FOR PAIN X2 TODAY AND ANXIETY X1 THIS AFTERNOON, CALL LIGHT IN REACH, BED IN THE LOW POSITION
--- NOTE | 2018-03-11 05:57 | NUR ---
REFUSAL OF VITALS PT IS REFUSING AM VITALS THIS MORNING FROM [employer].
--- NOTE | 2018-03-11 07:41 | NUR ---
SHIFT SUMMARY: NO CHANGES TO PATIENT DURING THE SHIFT. OT REMAINS EXTREMELY DROWSY, AROUSING ONLY FOR PAIN MEDS. RECIEVES ATIVAN 2MG AND OXYCODONE 5MG 2X THIS SHIFT FOR ANXIETY AND SKELETAL PAIN IN BACK/CHEST/SHOULDRS. 20 G IN L F/A SALINE LOCKED. LR RUNNING @ 100 ML/HR INTO PICC LINE IN TERRENCE. BOTH SITES WNL. NO VISITORS THIS SHIFT, PT DOES NOT GOT OUTSIDE TONIGHT. DENIES AM VITALS, IS MORE IRRITABLE THIS AM THEN PRIOR. WILL CONT TO MONITOR AND PROVIDE CARE UNTIL PRESUMED BY ONCOMING RN.
--- NOTE | 2018-03-11 16:03 | NUR ---
PT A/OX3, COOPERATIVE, THE PT IS UP IND IN HER ROOM, THE PT TODAY WENT OUTSIDE 1 TIME SO FAR, THE PT APPEARS TO BE BREATHING EASILY ON RA, PT HAS BEEN COOPERATIVE AND PLEASANT TODAY, PT WAS MEDICATED FOR ANXIETY X2 SO FAR TODAY, CALL LIGHT IN REACH, BED IN THE LOW POSITON
--- NOTE | 2018-03-12 05:39 | NUR ---
SHIFT SUMMARY PT HAD UNEVENTFUL SHIFT. PT DISCOMFORT TX PER EMAR WITH GOOD RESULT. PT HAS REMAINED IN HER ROOM ALL NIGHT. PT HAD NO FEVERS OR ACUTE ISSUES NOTED. PT RESTED OFF AND ON. PT CURRENTLY WATCHING TV AND BREATHING EASY. CALL LIGHT IN REACH AND BED IN LOW POSITION.
--- NOTE | 2018-03-12 18:15 | NUR ---
SUMMARY PT AWAKE IN BED EATING DINNER, PT HAS BEEN INDEPENDENT IN THE ROOM, OCC UP IN THE HALLS, PT HAS BEEN PLEASANT AND COOPERATIVE WITH CARE, MED PER EMAR FOR COMPLAINTS OF ACHES AND PAIN, PT WAS ABLE TO TAKE A SHOWER TODAY, VSS, NO ACUTE CHANGES, WILL CONT TO MONITOR
--- NOTE | 2018-03-13 03:10 | NUR ---
0140 OUTSIDE TO SMOKE. CURRENTLY 0310. CALLED [id number] @ AROUND 0250 TO SEE IF THEY COULD LOCATE PT. WILL AWAIT CALL FROM SECURITY.
--- NOTE | 2018-03-13 03:27 | NUR ---
0327 ARRIVED BACK TO ROOM. CLAUDIA.
--- NOTE | 2018-03-13 05:41 | NUR ---
SHIFT SUMMARY A/O X4, ABLE TO MAKE NEEDS KNOWN. COOPERATIVE WITH CARE. CALLS AND ANSWERS QUESTIONS APPROPRIATELY. OUT TO SMOKE X2. BF IN TO VISIT BREIFLY. RESTED PERIODICALLY. VSS/SLIGHT TEMP NOTED. INDEPENDENT IN ROOM. NO ACUTE CHANGES NOTED OVERNIGHT. BED IN LOWEST POSITION. CALL LIGHT AND BELONGINGS WITHIN REACH. WCTM. REPORT TO ONCOMING RN.
--- NOTE | 2018-03-13 17:38 | NUR ---
SUMMARY PT RESTING QUIETLY IN BED LISTENING TO MUSIC, PT HAS BEEN UP INDEPENDENTLY, HAS BEEN MED PER EMAR FOR PAIN, IS COOPERATIVE WITH CARE, VSS, NO ACUTE CHANGES, WILL CONT TO MONITOR
[2018-03-14 06:37] LABS: Hematocrit 38.4 % (33.0-51.0); Hemoglobin 12.5 g/dL (11.5-16.0); Mean Corpuscular HGB 30.1 pg (26.0-34.0); Mean Corpuscular HGB Conc 32.6 g/dL (31.5-36.5); Mean Corpuscular Volume 93 fL (80-100); Mean Platelet Volume 9.8 fL (9.1-12.4); Platelet Count 370 K/mm3 (150-400); RDW Standard Deviation 44.3 fL (35.1-46.3); Red Blood Cell Count 4.15 M/mm3 (3.80-5.20); White Blood Cell Count 9.43 K/mm3 (4.00-11.30)
[2018-03-14 06:56] LABS: BAND PERCENT MAN 10 % (0-8); BASOPHILS PERCENT MAN 0 % (0-2); EOSINOPHILS ABSOLUTE MAN 0.66 K/mm3 (0.00-0.68); EOSINOPHILS PERCENT MAN 7 % (0-6); LYMPHOCYTES ABSOLUTE MAN 3.01 K/mm3 (0.84-5.20); LYMPHOCYTES PERCENT MAN 32 % (21-46); METAMYELOCYTE ABSOLUTE MAN 0.28 K/mm3 (0.00-0.00); METAMYELOCYTE PERCENT MAN 3 % (0-0); MONOCYTES ABSOLUTE MAN 0.94 K/mm3 (0.16-1.47); MONOCYTES PERCENT MAN 10 % (4-13); MYELOCYTE ABSOLUTE MAN 0.28 K/mm3 (0.00-0.00); MYELOCYTE PERCENT MAN 3 % (0-0); NEUTROPHILS ABSOLUTE MAN 4.24 K/mm3 (1.96-9.15); SEG NEUTROPHILS PERCENT MAN 35 % (41-73); TOTAL CELLS COUNTED 100
[2018-03-14 06:59] LABS: Anion Gap 7 mmol/L (6-16); Blood Urea Nitrogen 21 mg/dL (8-24); Bun/Creatinine Ratio 30.5 (12.0-20.0); CO2, Blood 26 mmol/L (21-32); Calcium, Blood 8.8 mg/dL (8.5-10.1); Chloride, Blood 106 mmol/L (98-108); Creatinine, Blood 0.69 mg/dL (0.40-1.00); Glomerular Filtration Rate >60 (60-); Glucose, Blood 79 mg/dL (70-99); Potassium, Blood 4.1 mmol/L (3.5-5.5); Sodium, Blood 139 mmol/L (136-145)
--- NOTE | 2018-03-14 08:08 | NUR ---
Rn summary: Patient is alert and oriented. Pt c/o a headache 10/17. Medicated with tylenol with good relief. Patient did have oxy 5 mg and Ativan 2 mg for anxiety and withdrawl symptoms at 2300. Pt has been able to rest well most of the night. Pt states her body hurts all over with withdrawl. PICC line to R upper arm that flushes and draws well. Pt receiving antibiotics. Lungs are clear, active BT. No edema. Very pleasant and cooperative. Call light at bedside.
[2018-03-14] MEDS ORDERED: ACET325 PO (13:56)
[2018-03-14] MEDS ORDERED: LEVO750 PO (13:57)
--- NOTE | 2018-03-14 14:32 | NUR ---
PATIENT DISCHARGE THE PATIENT WAS DISCHARGED HOME WITH HER S/O, AFTER DISCHARGE INSTRUCTIONS WERE GIVEN TO THE PATIENT. THE PATIENT WAS INSTRUCTED TO FOLLOW UP WITH HER PCP AND TO TAKE HER ABX DIRECTED. THE PATIENT LEFT THE HOSPITAL WITHOUT CONCERN OR COMPLAINT.
== END 2018-03-14 15:11 | disposition home or self-care (01) | DRG 871 ==
LOC: ER 07:59 → ICUW 10:13 → ICUE 10:13 → MEDS 03-08 18:33 → ENPENDDIS 03-14 13:29 → MEDS 03-14 15:11
PROVIDERS: Internal Medicine; Internal Medicine Critical Care Medicine; ADMIT Hospitalist
PROC: 3E033XZ Introduction of Vasopressor into Peripheral Vein, Percutaneous Approach (ICD-10-PCS; principal; 2018-03-05)
PROC: 02HV33Z Insertion of Infusion Device into Superior Vena Cava, Percutaneous Approach (ICD-10-PCS; 2018-03-05)
PROC: 4A02X4A Measurement of Cardiac Electrical Activity, Guidance, External Approach (ICD-10-PCS; 2018-03-05)
DX: A41.9 Sepsis, unspecified organism (principal); R65.21 Severe sepsis with septic shock; N17.9 Acute kidney failure, unspecified; F11.23 Opioid dependence with withdrawal; I47.2 Ventricular tachycardia; F15.93 Other stimulant use, unspecified with withdrawal; F17.210 Nicotine dependence, cigarettes, uncomplicated; I95.9 Hypotension, unspecified; G47.00 Insomnia, unspecified; I73.9 Peripheral vascular disease, unspecified; Y64.1 Contaminated medical or biological substance, injected or used for immunization; R19.7 Diarrhea, unspecified; E87.6 Hypokalemia; T44.4X5A Adverse effect of predominantly alpha-adrenoreceptor agonists, initial encounter; Y92.239 Unspecified place in hospital as the place of occurrence of the external cause; E83.39 Other disorders of phosphorus metabolism
CPT/HCPCS: 36415; 36569; 51702; 71045; 80048; 80053; 80202; 81001; 81025; 83605; 83735; 84100; 84132; 85025; 85610; 85651; 87040; 87077; 87086; 87184; 87493; 93306; 96365; 96367; 99285-25; C1751; J0295; J1650; J2060; J2543; J3010; J3370; J3475; J3480; J7030; J7050; J7060; J7120

== ENCOUNTER 2018-12-13 12:39 | Emergency (ER) | payer OTHER ==
[~2018-12-13] VITALS: Ht 154.9 cm; Wt 54.4 kg
[~2018-12-13 12:39] MED LIST changes: +ACET325 PO; +LEVO750 PO
[2018-12-13] MEDS ORDERED: Bactrim Ds Tab1 EACH PO (13:04)
[2018-12-13] MEDS ORDERED: CEPH500 PO (13:04)
[2018-12-13] MEDS ORDERED: IBUP800 PO (13:04)
== END 2018-12-13 13:16 | disposition home or self-care (01) ==
LOC: ER 12:39
DX: K13.0 Diseases of lips (principal); Z88.8 Allergy status to other drugs, medicaments and biological substances; F17.200 Nicotine dependence, unspecified, uncomplicated
CPT/HCPCS: 99282

== ENCOUNTER 2019-02-14 11:05 | Emergency (ER) | payer OTHER ==
[~2019-02-14] VITALS: Ht 157.5 cm; Wt 54.4 kg
[~2019-02-14 11:05] MED LIST changes: +IBUP800 PO
== END 2019-02-14 13:34 | disposition left against medical advice (07) ==
LOC: ER 11:05
DX: Z53.21 Procedure and treatment not carried out due to patient leaving prior to being seen by health care provider (principal)

== ENCOUNTER 2019-02-15 18:38 | Inpatient (IN) | payer OTHER ==
[~2019-02-15] VITALS: Ht 157.5 cm; Wt 56.3 kg
[2019-02-15 19:34] LABS: BASOPHILS ABSOLUTE AUTO 0.04 K/mm3 (0.00-0.23); BASOPHILS PERCENT AUTO 0 % (0-2); EOSINOPHILS ABSOLUTE AUTO 0.11 K/mm3 (0.00-0.68); EOSINOPHILS PERCENT AUTO 1 % (0-6); Hematocrit 38.1 % (33.0-51.0); Hemoglobin 12.4 g/dL (11.5-16.0); IMMATURE GRAN ABSOLUTE AUTO 0.09 K/mm3 (0.00-0.10); IMMATURE GRAN PERCENT AUTO 1 % (0-1); LYMPHOCYTES ABSOLUTE AUTO 3.24 K/mm3 (0.84-5.20); LYMPHOCYTES PERCENT AUTO 24 % (21-46); MONOCYTES PERCENT AUTO 8 % (4-13); Mean Corpuscular HGB Conc 32.5 g/dL (31.5-36.5); Mean Corpuscular Volume 92 fL (80-100); Mean Platelet Volume 9.2 fL (9.1-12.4); NEUTROPHILS ABSOLUTE AUTO 8.93 K/mm3 (1.96-9.15); NEUTROPHILS PERCENT AUTO 66 % (41-73); Platelet Count 401 K/mm3 (150-400); RDW Coefficient Variation 12.1 % (11.7-14.2); RDW Standard Deviation 41.1 fL (35.1-46.3); Red Blood Cell Count 4.13 M/mm3 (3.80-5.20); White Blood Cell Count 13.51 K/mm3 (4.00-11.30)
[2019-02-15 20:11] LABS: Alanine Aminotransfer (ALT/SGP 140 U/L (12-78); Albumin, Blood 3.4 g/dL (3.4-5.0); Albumin/Globulin Ratio 0.7 (0.8-1.8); Alk Phos 82 U/L (50-136); Anion Gap 4 mmol/L (6-16); Aspartate Aminotrans (AST/SGOT 120 U/L (12-37); Bilirubin, Total 0.7 mg/dL (0.1-1.0); Blood Urea Nitrogen 9 mg/dL (8-24); Bun/Creatinine Ratio 17.9 (12.0-20.0); CO2, Blood 32 mmol/L (21-32); Calcium, Blood 8.9 mg/dL (8.5-10.1); Chloride, Blood 101 mmol/L (98-108); Glomerular Filtration Rate >60 (60-); Glucose, Blood 92 mg/dL (70-99); Potassium, Blood 4.4 mmol/L (3.5-5.5); Sodium, Blood 137 mmol/L (136-145); Total Protein, Blood 8.4 g/dL (6.4-8.2)
--- NOTE | 2019-02-16 01:30 | NUR ---
REPORT RECIEVED FROM LUCIANA BOX PRESS OPERATOR. PT TRANSFERED VIA WC TO UNIT. ORIENTED TO ROOM AND INTRODUCED TO NURSING STAFF. PT RATES PAIN 8/10. DENIED SOB, NAUSEA, DIZZINESS MEDICATED PER EMAR FOR PAIN. A/0 X4, INDEPENDENT IN ROOM. LR RUNNING AT 125/HR. PICTURE TAKEN OF RIGHT ARM OPEN ABCESS THAT WAS DRAINED IN THE ER. SEE DOCUMENTS FOR PICTURES. PT COOPERATIVE AND HAVE RECIEVED SNACKS. VSS, WILL CONTINUE TO MONITOR.
--- NOTE | 2019-02-16 03:14 | NUR ---
0230 PER GREG-HEAD TRACK COACH, PT AND PT'S FRIEND FOUND TO BE IN THE BATHROOM TOGETHER WITH DOOR CLOSED. STAFF SAID A BUNCH OF COMMOTION AND RUFFLING WAS HEARD IN THE BATHROOM. WHEN BOTH PT AND FRIEND CAME OUT, THEY WERE FOUND TO BE COVERING THEIR NOSE AND SNIFFING. PER HEAD TRACK COACH'S REPORT BOTH FRIEND AND PT WERE WIDE AWAKE AT THIS TIME. PT'S FRIEND ALSO BROUGHT MULTIPLE BAGS OF BELONGINGS TO FRIENDS ROOM. SECURITY WAS CALLED TO CHECK ON SUSPISIONS. PT'S FRIEND ENDED UP WILLINGLY ACCOMPANIED BY SECURITY LEAVING THE PREMISIS ALONG WITH HER MULTIPLE BAGS OF BELONGINGS.
[2019-02-16 05:02] LABS: BASOPHILS ABSOLUTE AUTO 0.04 K/mm3 (0.00-0.23); BASOPHILS PERCENT AUTO 0 % (0-2); EOSINOPHILS ABSOLUTE AUTO 0.18 K/mm3 (0.00-0.68); EOSINOPHILS PERCENT AUTO 2 % (0-6); Hematocrit 34.5 % (33.0-51.0); Hemoglobin 11.4 g/dL (11.5-16.0); IMMATURE GRAN ABSOLUTE AUTO 0.08 K/mm3 (0.00-0.10); IMMATURE GRAN PERCENT AUTO 1 % (0-1); LYMPHOCYTES ABSOLUTE AUTO 2.53 K/mm3 (0.84-5.20); LYMPHOCYTES PERCENT AUTO 22 % (21-46); MONOCYTES ABSOLUTE AUTO 1.04 K/mm3 (0.16-1.47); MONOCYTES PERCENT AUTO 9 % (4-13); Mean Corpuscular HGB 29.8 pg (26.0-34.0); Mean Corpuscular Volume 90 fL (80-100); Mean Platelet Volume 9.4 fL (9.1-12.4); NEUTROPHILS ABSOLUTE AUTO 7.45 K/mm3 (1.96-9.15); NEUTROPHILS PERCENT AUTO 66 % (41-73); Platelet Count 338 K/mm3 (150-400); RDW Coefficient Variation 12.1 % (11.7-14.2); RDW Standard Deviation 40.2 fL (35.1-46.3); Red Blood Cell Count 3.82 M/mm3 (3.80-5.20); White Blood Cell Count 11.32 K/mm3 (4.00-11.30)
[2019-02-16 05:22] LABS: Anion Gap 5 mmol/L (6-16); Blood Urea Nitrogen 7 mg/dL (8-24); Bun/Creatinine Ratio 12.2 (12.0-20.0); CO2, Blood 28 mmol/L (21-32); Calcium, Blood 8.5 mg/dL (8.5-10.1); Chloride, Blood 105 mmol/L (98-108); Creatinine, Blood 0.58 mg/dL (0.40-1.00); Glomerular Filtration Rate >60 (60-); Glucose, Blood 149 mg/dL (70-99); Potassium, Blood 3.9 mmol/L (3.5-5.5); Sodium, Blood 138 mmol/L (136-145)
--- NOTE | 2019-02-16 06:30 | NUR ---
[employer] SUPERVISOR SUMMARY PT A/O X4. APRRECIATIVE AND FOLLOWS DIRECTIONS. PT RATES RIGHT ARM PAIN 08/17. MEDICATED WITH OXYCODONE PO 5 MG X1. WHEN RE-ASSESSED, PT STATED THE PAIN MED "DID NOT TOUCH" THE PAIN. LATER IN THE SHIFT, PT COMPLAINED OF LEG PAIN AND SHAKING IN HER LEGS . SCD'S WERE TAKEN OFF AND PT STATED THE LEG PAIN LOWERED WITH IT TAKEN OFF. PT ALSO STATED SHE FELT COOL AND WARM OFF AND ON WITH SOME CLAMMY SKIN. COOL WASHCLOTH WAS OFFERED BUT PT DECLINED. PT ALSO STATED THAT THIS HAPPENS TO HER OFTEN. PT WAS MEDICATED WITH OCYCODONE PO 10 MG. WILL RE-ASSESS PAIN. PT ASKED IF SHE CAN GO OUT FOR A SMOKE. NURSE TOLD PT TO WAIT UNTIL ANTIBIOTICS WERE FINISHED. PT DECLINED TO HAVE NICOTINE PATCH. PT NPO SINCE MIDNIGHT IN PREP FOR POSSIBLE PROCEDURE.
--- NOTE | 2019-02-16 07:17 | NUR ---
PT WAS AGITATED AND NEARLY TEARFUL AND WANTED TO GO OUT FOR A SMOKE. TAMPER TAPE WAS PUT ON IV. PT WAS NOTIFIED TO BE BACK WITHIN 45 MIN OR IT WOULD BE CONSIDERED LEAVING AMA. ABCESS ON R ARM DRAINING. GAUZE AND COBAN WRAPPED AROUND R ARM.
--- NOTE | 2019-02-16 19:25 | NUR ---
SHIFT SUMMARY: NO ACUTE CHANGES TO REPORT THIS SHIFT. PT A&O X4; CALM AND COOPERATIVE WITH CARE; INDEPENDENT IN ROOM. MEDICATED FOR ABSCESS PAIN PER EMAR. PT OUTSIDE TO SMOKE SEVERAL TIMES THIS SHIFT; HX IV DRUG USE; TAMPER TAPE PLACED ON IV. NECK ABSCESS ASPIRATED THIS SHIFT (DR HARRIS). R ARM ABSCESS DRESSING CHANGED THIS SHIFT; SMALL AMOUNT DRAINAGE. IV ABX CONTINUING. REPORT GIVEN TO ONCOMING RN.
--- NOTE | 2019-02-17 00:58 | NUR ---
PT LEFT ROOM WITH SIGNIFICANT OTHER EARLIER, STATED SHE WOULD TAKE HER ANTIBIOTIC WHEN SHE RETURNED TO THE ROOM, BUT HAS NOT RETURNED. TAMPER TAPE WAS APPLIED TO IV ACCESS PRIOR TO HER LEAVING. ALERT AND ORIENTED.
--- NOTE | 2019-02-17 04:55 | NUR ---
Dresssings of right shoulder/neck area and right arm remain clean, dry and intact. IVF and antibiotics continue to be administered as per MAR, when pt remains in room at the times meds are due. Pt left earlier with male visitor and returned later putting HS antibiotic off for about 3 hrs. Currently resting quietly, voiced wanting pain med earlier, but when nurse returned, pt was sleeping. Will continue to monitor. Call light in reach. Continues on contact isolation precautions.
[2019-02-17 05:40] LABS: BASOPHILS ABSOLUTE AUTO 0.04 K/mm3 (0.00-0.23); BASOPHILS PERCENT AUTO 0 % (0-2); EOSINOPHILS PERCENT AUTO 4 % (0-6); Hematocrit 31.8 % (33.0-51.0); Hemoglobin 10.4 g/dL (11.5-16.0); IMMATURE GRAN ABSOLUTE AUTO 0.09 K/mm3 (0.00-0.10); IMMATURE GRAN PERCENT AUTO 1 % (0-1); LYMPHOCYTES ABSOLUTE AUTO 3.45 K/mm3 (0.84-5.20); LYMPHOCYTES PERCENT AUTO 33 % (21-46); MONOCYTES ABSOLUTE AUTO 0.92 K/mm3 (0.16-1.47); MONOCYTES PERCENT AUTO 9 % (4-13); Mean Corpuscular HGB 29.2 pg (26.0-34.0); Mean Corpuscular HGB Conc 32.7 g/dL (31.5-36.5); Mean Corpuscular Volume 89 fL (80-100); NEUTROPHILS ABSOLUTE AUTO 5.51 K/mm3 (1.96-9.15); NEUTROPHILS PERCENT AUTO 53 % (41-73); Platelet Count 356 K/mm3 (150-400); RDW Coefficient Variation 11.9 % (11.7-14.2); RDW Standard Deviation 38.4 fL (35.1-46.3); Red Blood Cell Count 3.56 M/mm3 (3.80-5.20); White Blood Cell Count 10.41 K/mm3 (4.00-11.30)
--- NOTE | 2019-02-17 11:00 | NUR ---
PATIENT STATED SHE WANTED TO GO SMOKE OUTSIDE. RN COVERED IV PORTS WITH NON- TAMPER TAPE. PATIENT LEFT HER ROOM AT 10:45 AM.
--- NOTE | 2019-02-17 18:13 | NUR ---
PATIENT IS ALERT AND ORIENTED AND COOPERATIVE WITH CARE. SHE IS A CURRENT SMOKER, GOES OUTSIDE TO SMOKE MULTIPLE TIMES A DAY. NON-TAMPER TAPE IS APPLIED TO THE PORTS OF HER IV BEFORE SHE GOES OUT TO SMOKE BECAUSE OF HER HX AN IV DRUG USER. SHE HAS AN ABSCESS ON THE RIGHT SIDE OF HER NECK. DR. HARRIS DRAINED 6ML OF FLUID TODAY 02/17/19 FROM SAID ABSCESS. DRESSING ON HER NECK WAS CHANGED TODAY. DRESSING ON HER RIGHT ARM WAS RE-PACKED AND RE-DRESSED PER DR. HARRIS. WILL CONTINUE TO MONITOR
--- NOTE | 2019-02-18 00:08 | NUR ---
PT VOICED DISCOMFORT AT IV SITE, NOTED SLIGHT REDNESS AND SWELLING. IV STOPPED, IV REMOVED. ATTEMPTS MADE TO PLACE ANOTHER. CHARGE NURSE TO CALL ICU/PCU FOR ASSISTANCE IN SAID INSERTION.
--- NOTE | 2019-02-18 02:00 | NUR ---
ICU nurse placed power glide in left upper arm. flushed well. IV antibiotics infusing as per MAY. Call light in reach.
[2019-02-18 05:44] LABS: BASOPHILS ABSOLUTE AUTO 0.03 K/mm3 (0.00-0.23); BASOPHILS PERCENT AUTO 0 % (0-2); EOSINOPHILS ABSOLUTE AUTO 0.36 K/mm3 (0.00-0.68); EOSINOPHILS PERCENT AUTO 3 % (0-6); Hemoglobin 11.4 g/dL (11.5-16.0); IMMATURE GRAN ABSOLUTE AUTO 0.07 K/mm3 (0.00-0.10); IMMATURE GRAN PERCENT AUTO 1 % (0-1); LYMPHOCYTES PERCENT AUTO 25 % (21-46); MONOCYTES ABSOLUTE AUTO 0.99 K/mm3 (0.16-1.47); MONOCYTES PERCENT AUTO 9 % (4-13); Mean Corpuscular HGB 29.2 pg (26.0-34.0); Mean Corpuscular HGB Conc 32.6 g/dL (31.5-36.5); Mean Corpuscular Volume 90 fL (80-100); Mean Platelet Volume 8.8 fL (9.1-12.4); NEUTROPHILS ABSOLUTE AUTO 7.16 K/mm3 (1.96-9.15); NEUTROPHILS PERCENT AUTO 63 % (41-73); Platelet Count 411 K/mm3 (150-400); RDW Standard Deviation 39.3 fL (35.1-46.3); White Blood Cell Count 11.41 K/mm3 (4.00-11.30)
--- NOTE | 2019-02-18 06:26 | NUR ---
IV SITE INFILTRATED EARLIER IN THE SHIFT, AFTER SEVERAL ATTEMPTS TO PLACE ANOTHER PERIPHERAL IV, CONTINUOUS WAVE OPERATOR PLACED POWER GLIDE IN LEFT UPPER ARM. IV ANTIBIOTICS ADMINISTERED PER MAY. ISOLATION PRECAUTIONS CONTINUE. DRESSINGS CDI. CALL LIGHT IN REACH.
[2019-02-18 12:23] LABS: Vancomycin, Trough 17.5 ug/mL (5.0-10.0)
--- NOTE | 2019-02-18 17:09 | NUR ---
SUMMARY PT UP IN THE SHOWER AT THIS TIME, PT HAS BEEN PLEASANT AND COOPERATIVE WITH CARE, MED PER EMAR FOR C/O PAIN, DR HARRIS CAME BY AND ASPIRATED A SMALL AMOUNT OF SANGUINEOUS DRAINAGE FROM THE ABSCESS TO THE R SIDE OF HER NECK, PT SELVIN WELL, PT HAS BEEN UP OUT OF THE ROOM SEVERAL TIMES, VSS, NO ACUTE CHANGES, WILL CONT TO MONITOR
--- NOTE | 2019-02-19 05:47 | NUR ---
WEB SITE ADMINISTRATOR SUMMARY PATIENT QUIET IN ROOM. SLEPT ON AND OFF AND WENT DOWNSTAIRS TWICE AFTER INFORMING STAFF TO SMOKE. LUNG SOUNDS CLEAR, BOWEL TONES PRESENT AND NORMOACTIVE x4. VOIDING CLEAR YELLOW URINE. RIGHT NECK ABCESS SITE CLOSED WITHOUT REDNESS OR DRANAGE. pATIENT SCRATCHING AT RIGHT AC WOUND AND PARTIALLY REMOVED DRESSING. WOUND CLEANED WITH STERILE SALINE SOAKED GAUZE THEN NEW MEPILEX PLACED. LULA BLOOD OUT OF WOUND, BUT NO PURULENT FLUID OR ODOR NOTED. PATIENT ANXIOUS TO GET HOME TO FATHER WHO IS ON HOSPICE.
[2019-02-19 07:50] LABS: BASOPHILS ABSOLUTE AUTO 0.03 K/mm3 (0.00-0.23); BASOPHILS PERCENT AUTO 0 % (0-2); EOSINOPHILS ABSOLUTE AUTO 0.39 K/mm3 (0.00-0.68); EOSINOPHILS PERCENT AUTO 5 % (0-6); Hematocrit 36.8 % (33.0-51.0); Hemoglobin 12.1 g/dL (11.5-16.0); IMMATURE GRAN ABSOLUTE AUTO 0.12 K/mm3 (0.00-0.10); IMMATURE GRAN PERCENT AUTO 1 % (0-1); LYMPHOCYTES ABSOLUTE AUTO 2.97 K/mm3 (0.84-5.20); LYMPHOCYTES PERCENT AUTO 36 % (21-46); MONOCYTES ABSOLUTE AUTO 0.72 K/mm3 (0.16-1.47); MONOCYTES PERCENT AUTO 9 % (4-13); Mean Corpuscular HGB 29.6 pg (26.0-34.0); Mean Corpuscular HGB Conc 32.9 g/dL (31.5-36.5); Mean Corpuscular Volume 90 fL (80-100); Mean Platelet Volume 8.7 fL (9.1-12.4); NEUTROPHILS ABSOLUTE AUTO 4.07 K/mm3 (1.96-9.15); NEUTROPHILS PERCENT AUTO 49 % (41-73); Platelet Count 436 K/mm3 (150-400); RDW Standard Deviation 39.5 fL (35.1-46.3); Red Blood Cell Count 4.09 M/mm3 (3.80-5.20)
[2019-02-19] MEDS ORDERED: ACET325 PO (10:09)
[2019-02-19] MEDS ORDERED: Bactrim 400-801 EACH PO (10:10)
[2019-02-19] MEDS ORDERED: Vsl#3 Capsule1 EACH PO (10:11)
[2019-02-19] MEDS ORDERED: IBUP400 PO (10:11)
--- NOTE | 2019-02-19 10:29 | NUR ---
DR GROSSMAN STATES OKAY TO D/C., REQUEST I CALL DR HARRIS AND SEE IF IS OKAY. CALLED DR HARRIS. HE STATES WANTS IV ABX AT LEAST 2 MORE [address] WILL CALL DR GROSSMAN DIRECTLY .
--- NOTE | 2019-02-19 16:11 | NUR ---
PT PLEASANT TODAY. HAS BEEN OUT TO SMOKE MULTIPLE TIME. PT INDEPENDANT. HAS ASKED FOR PAIN MED ONCE TODAY. WAS PLANNED FOR DISCHARGE FOR TODAY. HOWEVER DR HARRIS WANTS MORE DAYS ABX IV. HARD LUMP ON REMAINS. NO OTHER CONCERNS AT THIS TIME. BED IN LOW POSITION, CALL LITE IN REACH, CALLS APPROP
--- NOTE | 2019-02-19 18:17 | NUR ---
ASKED PT IF OKAY. STATES ATE TOO MUCH TOO FAST. SOME ABD PN. STATES IS OKAY, NO NEEDS. BED IN LOW POSITION, CALL LITE IN REACH, CALLS APPROP
--- NOTE | 2019-02-20 04:05 | NUR ---
SHIFT SUMMARY AOX4. LS CLEAR, DENIES SOB. NO C/O NAUSEA. PAIN 8/10 BUT PT DOES NOT WANT TO TAKE PAIN MEDS AT THIS TIME. R AC DRESSING IS C/D/I. R NECK CELLULITIS IS OPEN TO AIR. INDEPENDENT. GOES OUTSIDE TO SMOKE. CONTACT PRECAUTIONS FOR MRSA. POWERGLIDE IN [facility]. PLAN IS TO CONTINUE IV ANTIBIOTICS AND GO HOME IN A COUPLE DAYS. VSS ON RA.
[2019-02-20 13:09] LABS: Vancomycin, Trough 18.4 ug/mL (5.0-10.0)
--- NOTE | 2019-02-20 19:24 | NUR ---
SHIFT SUMMARY. A&OX4, INDEPENDENT, PT IS PLEASANT AND COOPERATIVE, OUT TO SMOKE INTERMITTENTLY DURING SHIFT. PT CONTINUES WITH PAIN TO R SIDE OF NECK THAT IS MANAGED WELL WITH CURRENT ORDERS. R NECK WITH FAINT QUATER-SIZED PINKNESS AND THREE PINPOINT SCABS. R FA WITH WOUND WITH 0.4 CIRCULAR WOUND WITH SANGANIOUS DRAINAGE, REDNESS AND INDURATION AROUND WOUND, WOUND SITE CLEANSED AND REDRESSED. PT DENIES N/V, SOB. CONTINUES WITH IV ABX. NO NEW CHANGES OR CONCERNS.
--- NOTE | 2019-02-21 06:27 | NUR ---
FLOUR WORKER SUMMARY PT A/O X4. INDEPENDENT IN ROOM. MEDICATED FOR PAIN IN NECK X2 THIS SHIFT. PT SEEMED ANNOYED BY STAFF TOWARDS END OF SHIFT WHEN VITALS WERE TAKEN AND MEDS WERE GIVEN. PT REFUSED TO HAVE NURSE CHECK ON DRESSING IN R ARM AND SAID IT WAS "FINE". BLOOD PRESSURE WAS 88/52 THIS RAIL TECHNICIAN. PT ASYMOPTOMATIC. DR. SHEARER NOTIFIED OF LOW BLOOD PRESSURE. NO NEW ORDERS.
[2019-02-21 12:56] LABS: Vancomycin, Trough 20.5 ug/mL (5.0-10.0)
--- NOTE | 2019-02-21 15:38 | NUR ---
SHIFT SUMMARY NO ACUTE CHANGES. PATIENT MEDICATED SEVERAL TIMES THIS SHIFT FOR PAIN. DENIES NAUSEA AND SHORTNESS OF BREATH. PATIENT UP INDEPENDENT AND GOES OUTSIDE TO SMOKE OCCASSIONALLY. PATIENT HAS STATED SHE MAY LEAVE AMA THIS EVENIGN BUT HAS BEEN ENCOURGAGED TO STAY AND CONTINUE RECIEVING HER COURSE OF ANTIBIOTICS. PATIENT CAN BE IRRITABLE WITH CARE AT TIMES. CALL LIGHT IN REACH.
--- NOTE | 2019-02-22 04:21 | NUR ---
SHIFT SUMMARY- NO ACUTE EVENTS OVERNIGHT. PT. REQUESTED TO SHOWER LAST NIGHT, MEPILEX APPLIED TO WOUND ON THE RT FOREARM. PT. MEDICATED FOR PAIN AND RECEIVED ABX SCHEDULED. ASLEEP T/O THE REST OF THE NIGHT, NO APPARENT DISTRESS NOTED. CALL LIGHT WITHIN REACH AND SIDE RAILS UP X2. WILL CONT TO MONITOR.
--- NOTE | 2019-02-22 09:28 | NUR ---
DISCHARGE INSTRUCTIONS GIVEN TO PATIENT, BOTH VERBALLY AND A PRINTED COPY. EDUCATIONAL MATERIAL PROVIDED REGARDING 1)ABCESS, 2)PROBIOTICS AND 3)BACTRIM. ALL QUESTIONS ANSWERED. POWERGLIDE REMOVED, PRESSURE DRESSING APPLIED. PATIENT GATHING SELF TOGETHER TO DISCHARGE HOME.
--- NOTE | 2019-02-22 10:14 | NUR ---
PATIENT DISCHARGED HOME AT 1012 WITH MALE FRIEND. PATIENT AMBULATED OUT OF FACILITY.
== END 2019-02-22 10:13 | disposition home or self-care (01) | DRG 872 ==
LOC: DELPENDDIS → ER 18:38 → MEDS 22:51 → ENPENDDIS 02-19 10:11 → MEDS 02-22 10:13
PROVIDERS: Family Medicine; Internal Medicine; Physician Assistant; ADMIT Internal Medicine
PROC: 0J943ZZ Drainage of Right Neck Subcutaneous Tissue and Fascia, Percutaneous Approach (ICD-10-PCS; principal; 2019-02-16)
DX: A41.9 Sepsis, unspecified organism (principal); L02.11 Cutaneous abscess of neck; L03.113 Cellulitis of right upper limb; L03.221 Cellulitis of neck; F17.200 Nicotine dependence, unspecified, uncomplicated; F11.10 Opioid abuse, uncomplicated; F15.10 Other stimulant abuse, uncomplicated
CPT/HCPCS: 10061; 36415; 70491; 80048; 80053; 80202; 83605; 85025; 87040; 96365-59; 96367-59; 99284-25; C1751; J0696; J1170; J2543; J3370; J7030; J7050; J7120; Q9967

== ENCOUNTER → 2019-08-05 | Outpatient (CLI) | payer OTHER ==
[~2019-08-05] MED LIST changes: +Bactrim 400-801 EACH PO; +IBUP400 PO; +Vsl#3 Capsule1 EACH PO
[2019-08-06 09:58] LABS: Candida species (DNA Probe) Negative (NEGATIVE); G. vaginalis (DNA Probe) Positive (NEGATIVE); T. vaginalis (DNA Probe) Positive (NEGATIVE)
[2019-08-08 13:10] LABS: CHLAMYDIA TRACHOMATIS, NAA Negative (Negative); NEISSERIA GONORRHOEAE, NAA Negative (Negative)
== END | disposition home or self-care (01) ==
LOC: LAB 15:40 → LAB SHORT 15:40
PROVIDERS: Physician Assistant
DX: Z72.53 High risk bisexual behavior (principal)
CPT/HCPCS: 87070; 87205; 87480; 87491; 87510; 87591; 87660

== ENCOUNTER 2021-03-14 23:13 | Emergency (ER) | payer OTHER ==
[~2021-03-14] VITALS: Ht 157.5 cm; Wt 54.4 kg
[2021-03-15 00:28] LABS: BASOPHILS ABSOLUTE AUTO 0.04 K/mm3 (0.00-0.23); BASOPHILS PERCENT AUTO 0 % (0-2); EOSINOPHILS ABSOLUTE AUTO 0.02 K/mm3 (0.00-0.68); EOSINOPHILS PERCENT AUTO 0 % (0-6); Hematocrit 32.9 % (33.0-51.0); Hemoglobin 11.1 g/dL (11.5-16.0); IMMATURE GRAN ABSOLUTE AUTO 0.06 K/mm3 (0.00-0.10); IMMATURE GRAN PERCENT AUTO 1 % (0-1); LYMPHOCYTES ABSOLUTE AUTO 1.63 K/mm3 (0.84-5.20); LYMPHOCYTES PERCENT AUTO 13 % (21-46); MONOCYTES ABSOLUTE AUTO 1.14 K/mm3 (0.16-1.47); MONOCYTES PERCENT AUTO 9 % (4-13); Mean Corpuscular HGB 29.4 pg (26.0-34.0); Mean Corpuscular HGB Conc 33.7 g/dL (31.5-36.5); Mean Corpuscular Volume 87 fL (80-100); Mean Platelet Volume 9.3 fL (9.1-12.4); NEUTROPHILS ABSOLUTE AUTO 9.43 K/mm3 (1.96-9.15); NEUTROPHILS PERCENT AUTO 77 % (41-73); Platelet Count 396 K/mm3 (150-400); RDW Coefficient Variation 12.1 % (11.7-14.2); Red Blood Cell Count 3.77 M/mm3 (3.80-5.20); White Blood Cell Count 12.32 K/mm3 (4.00-11.30)
[2021-03-15 00:37] LABS: Alanine Aminotransfer (ALT/SGP 15 U/L (12-78); Albumin, Blood 3.1 g/dL (3.4-5.0); Albumin/Globulin Ratio 0.6 (0.8-1.8); Alk Phos 79 U/L (50-136); Anion Gap 8 mmol/L (6-16); Aspartate Aminotrans (AST/SGOT 14 U/L (12-37); Bilirubin, Total 0.5 mg/dL (0.1-1.0); Blood Urea Nitrogen 9 mg/dL (8-24); Bun/Creatinine Ratio 13.2 (12.0-20.0); CO2, Blood 27 mmol/L (21-32); Calcium, Blood 9.2 mg/dL (8.5-10.1); Chloride, Blood 101 mmol/L (98-108); Creatinine, Blood 0.68 mg/dL (0.40-1.00); Globulin, Blood 5.2 g/dL (2.2-4.0); Glomerular Filtration Rate >60 (60-); Glucose, Blood 140 mg/dL (70-99); Potassium, Blood 3.7 mmol/L (3.5-5.5); Sodium, Blood 136 mmol/L (136-145); Total Protein, Blood 8.3 g/dL (6.4-8.2); Troponin I <0.015 ng/mL (0.000-0.040)
[2021-03-15 00:46] LABS: Source, Urine Clean Catch
[2021-03-15 01:02] LABS: Appearance, Urine Hazy (Clear); Bilirubin, Urine Neg (Neg); Blood, Urine 3+ (Neg); Color, Urine Yellow (P-Yellow); Glucose Qualitative, Urine Neg (Neg); Ketones, Urine 1+ (Neg); Leukocyte Esterase, Urine 3+ (Neg); Nitrite, Urine Pos (Neg); Protein, Urine 2+ (Neg); Specific Gravity, Urine 1.025 (1.003-1.022); Urobilinogen, Urine NORM (Normal)
[2021-03-15 01:29] LABS: Influenza A, PCR NEGATIVE (NEGATIVE); Influenza B, PCR NEGATIVE (NEGATIVE); Resp Syncytial Virus, PCR NEGATIVE (NEGATIVE)
[2021-03-15 01:33] LABS: SARS-Cov-2 (COVID-19) PCR, MMC POSITIVE (NEGATIVE)
[2021-03-15 01:40] LABS: White Blood Cells, Urine 50-100 /hpf (0-5)
[2021-03-15 01:41] LABS: Bacteria Many /hpf; Squamous Epithelial Cells Few /hpf (Few)
[2021-03-15] MEDS ORDERED: SULTRISS PO (01:58)
== END 2021-03-15 02:27 | disposition home or self-care (01) ==
LOC: ER 23:13
PROVIDERS: Student in an Organized Health Care Education/Training Program
DX: U07.1 COVID-19 (principal); N39.0 Urinary tract infection, site not specified; F17.210 Nicotine dependence, cigarettes, uncomplicated; F19.10 Other psychoactive substance abuse, uncomplicated
CPT/HCPCS: 0241U; 36415; 71045; 80053; 81001; 81025; 83605; 84484; 85025; 85651; 87077; 87086; 87186; 93005; 93010; 99285-25; A9270; J7030

== ENCOUNTER 2022-03-26 22:20 | Emergency (ER) | payer OTHER ==
[~2022-03-26] VITALS: Ht 157.5 cm; Wt 56.7 kg
[~2022-03-26 22:20] MED LIST changes: +SULTRISS PO
[2022-03-27] MEDS ORDERED: IBUP400 PO (00:14)
[2022-03-27] MEDS ORDERED: CEPH500 PO (00:14)
== END 2022-03-27 00:27 | disposition home or self-care (01) ==
LOC: ER 22:20
DX: H00.034 Abscess of left upper eyelid (principal); H00.035 Abscess of left lower eyelid; H01.006 Unspecified blepharitis left eye, unspecified eyelid; F17.210 Nicotine dependence, cigarettes, uncomplicated; Z88.8 Allergy status to other drugs, medicaments and biological substances; Z79.899 Other long term (current) drug therapy
CPT/HCPCS: A9270

== ENCOUNTER 2022-10-28 21:37 | Emergency (ER) | payer OTHER ==
[~2022-10-28] VITALS: Ht 157.5 cm; Wt 59.0 kg
[2022-10-28 21:44] VITALS: BP 130/87
[2022-10-28 22:15] LABS: Source, Urine Clean Catch
[2022-10-28 22:23] LABS: Bilirubin, Urine Neg (Neg); Blood, Urine 5+ (Neg); Glucose Qualitative, Urine Neg (Neg); Ketones, Urine Neg (Neg); Leukocyte Esterase, Urine Neg (Neg); Nitrite, Urine Neg (Neg); Protein, Urine 1+ (Neg); Urobilinogen, Urine NORM (Normal)
[2022-10-28 22:57] LABS: Appearance, Urine Hazy (Clear); Color, Urine Yellow (P-Yellow)
[2022-10-28 22:58] LABS: Bacteria Few /hpf; Squamous Epithelial Cells Mod /hpf (Few); White Blood Cells, Urine 0-2 /hpf (0-5)
== END 2022-10-28 22:21 | disposition left against medical advice (07) ==
LOC: ER 21:37
PROVIDERS: Physician Assistant
DX: N93.9 Abnormal uterine and vaginal bleeding, unspecified (principal); Z53.21 Procedure and treatment not carried out due to patient leaving prior to being seen by health care provider
CPT/HCPCS: 81001; 99281